=== PATIENT | female | born 1985 | race Caucasian/White ===

== ENCOUNTER 2022-11-20 19:30 | Inpatient (IN) | payer SELFPAY ==
[2022-11-20] MEDS ORDERED: DEXTROSE 5%-LACTATED RINGERS 1,000 ML IV SCH (20:30)
[2022-11-20 21:09] LABS: BASO % 0.5 % (0-2.0); EOS % 0.8 % (0-4.5); HEMATOCRIT 31.5 % (32.4-45.2); HEMOGLOBIN 11.3 GM/dL (10.7-15.3); LYMPH % 20.9 % (8-40); MCH 34.9 pg (25.7-33.7); MEAN CELL VOLUME 96.8 fl (80-96); MEAN PLT VOLUME 8.3 fl (7.5-11.1); MONO % 5.9 % (3.8-10.2); NEUT % 71.9 % (42.8-82.8); PLATELET COUNT 205 10^3/uL (134-434); RBC 3.25 M/mm3 (3.60-5.2); RDW 13.8 % (11.6-15.6); WHITE BLOOD COUNT 8.9 K/mm3 (4.0-10.0)
[2022-11-20 21:25] LABS: INR 0.99 (0.83-1.09); PROTHROMBIN TIME (PATIENT) 11.5 SEC (9.7-13.0)
[2022-11-20 21:27] LABS: ACTIVATED PTT 25.1 SECONDS (25.2-36.5)
[2022-11-20 21:40] LABS: POTASSIUM 3.6 mmol/L (3.5-5.1)
[2022-11-20 21:42] LABS: CALCIUM 8.4 mg/dL (8.5-10.1)
[2022-11-20 21:46] LABS: CREATININE 0.5 mg/dL (0.55-1.3)
[2022-11-20] MEDS: MISOPROSTOL 100 MCG TABLET PV SCH (21:50)
[2022-11-20 22:42] LABS: BLOOD UREA NITROGEN 16.6 mg/dL (7-18)
[2022-11-21 00:05] VITALS: BMI 28.3
[2022-11-21] MEDS ORDERED: SODIUM CHLORIDE 500 ML IV STA (02:05)
[2022-11-21] MEDS: MISOPROSTOL 100 MCG TABLET PV SCH ×3 (02:10→08:30)
[2022-11-21] MEDS ORDERED: morphine SULFATE 4 MG/ML VIAL IVPB ONE (06:11)
[2022-11-21] MEDS: OXYTOCIN 20 UNITS in 0.9% NS 20 UNIT/1,000 ML INFUS.BAG IV SCH ×2 (06:40→07:48)
[2022-11-21] MEDS ORDERED: BENZOCAINE 28 GM HEMORRHOIDAL OINTMENT TP PRN (07:01)
[2022-11-21] MEDS ORDERED: ACETAMINOPHEN 325 MG TABLET (FP) PO PRN (07:01)
[2022-11-21] MEDS ORDERED: WITCH HAZEL 50% (TUCKS) 40 PAD/JAR PAD TP PRN (07:01)
[2022-11-21 07:21] LABS: CORD BASE EXCESS -4.1 mmol/L (0-2); CORD PCO2 38.7 mmHg (30-78); CORD pH 7.352 (7.14-7.44)
[2022-11-21 07:27] LABS: CORD BASE EXCESS -4.3 mmol/L (0-2); CORD HCO3 23.4 mmHg (20-29); CORD PCO2 52.7 mmHg (30-78); CORD pH 7.265 (7.14-7.44)
[2022-11-21] MEDS: FERROUS SO4 325 MG TABLET (FP) PO SCH ×3 (09:04→18:37)
[2022-11-21] MEDS: PRENATAL VITAMINS W/ FOLIC ACID TABLET (FP) PO SCH (11:09)
[2022-11-21] MEDS: IBUPROFEN 600 MG TABLET (FP) PO PRN ×3 (11:10→23:23)
[2022-11-22 08:22] LABS: BASO % 0.2 % (0-2.0); EOS % 1.2 % (0-4.5); HEMATOCRIT 24.5 % (32.4-45.2); HEMOGLOBIN 8.6 GM/dL (10.7-15.3); LYMPH % 16.9 % (8-40); MCH 34.4 pg (25.7-33.7); MEAN CELL VOLUME 98.5 fl (80-96); MEAN PLT VOLUME 8.8 fl (7.5-11.1); MONO % 5.8 % (3.8-10.2); NEUT % 75.9 % (42.8-82.8); PLATELET COUNT 141 10^3/uL (134-434); RBC 2.49 M/mm3 (3.60-5.2); RDW 13.8 % (11.6-15.6); WHITE BLOOD COUNT 11.9 K/mm3 (4.0-10.0)
[2022-11-22] MEDS: FERROUS SO4 325 MG TABLET (FP) PO SCH ×3 (08:35→16:34)
[2022-11-22] MEDS: IBUPROFEN 600 MG TABLET (FP) PO PRN ×2 (08:35→16:30)
[2022-11-22] MEDS: PRENATAL VITAMINS W/ FOLIC ACID TABLET (FP) PO SCH (12:58)
[2022-11-22] MEDS: DOCUSATE SODIUM 100 MG CAPSULE (FP) PO SCH ×2 (13:21→21:16)
[2022-11-23] MEDS: IBUPROFEN 600 MG TABLET (FP) PO PRN ×2 (00:18→09:15)
[2022-11-23] MEDS: DOCUSATE SODIUM 100 MG CAPSULE (FP) PO SCH (06:11)
[2022-11-23 08:41] VITALS: BP 112/76; PULSE 83; RESP 17; TEMP 98
[2022-11-23] MEDS: PRENATAL VITAMINS W/ FOLIC ACID TABLET (FP) PO SCH (09:10)
[2022-11-23] MEDS: FERROUS SO4 325 MG TABLET (FP) PO SCH ×2 (09:11→12:00)
== END 2022-11-23 13:00 | disposition home or self-care (01) | DRG 560 ==
LOC: JLDR 19:30 → J3W 11-21 08:14
PROVIDERS: ADMIT Obstetrics & Gynecology Maternal & Fetal Medicine; ATTEND Obstetrics & Gynecology Maternal & Fetal Medicine
PROC: 10E0XZZ Delivery of Products of Conception, External Approach (ICD-10-PCS; principal; 2022-11-21)
DX: O13.4 Gestational [pregnancy-induced] hypertension without significant proteinuria, complicating childbirth (principal); O41.03X0 Oligohydramnios, third trimester, not applicable or unspecified; O99.12 Other diseases of the blood and blood-forming organs and certain disorders involving the immune mechanism complicating childbirth; D68.61 Antiphospholipid syndrome; O69.81X0 Labor and delivery complicated by cord around neck, without compression, not applicable or unspecified; Z37.0 Single live birth; Z3A.37 37 weeks gestation of pregnancy
CPT/HCPCS: 36415; 36600; 80048; 82803; 85025; 85610; 85730; 86780; 86850; 86900; 86901; 88307-TC